=== PATIENT | female | born 1985 | race Caucasian/White ===

== ENCOUNTER 2017-11-23 12:02 | Emergency (ER) | payer MEDICAID ==
--- NOTE | 2017-11-23 13:40 | EDPHY ---
H & P Time Seen by Provider: 11/23/17 13:20 HPI/ROS: Chief complaint. Trouble breathing HPI. 32-year-old female history of asthma has been having dyspnea on exertion and wheezing for approximately 1 week. More short of breath today. Cough and slight sore throat. Achy but no fever. No unusual leg pain or swelling. No vomiting or diarrhea. Using her inhaler with inadequate relief. ROS Constitutional. no fever/chills, no weakness Eyes. no problems with vision ENT. Sore throat Cardiovascular. Diffuse anterior chest tightness Respiratory. Cough and shortness of breath with exertion Abdominal. no abdominal pain, no nausea/vomiting, no diarrhea . no problems urinating MS. no calf pain/swelling, no neck/back pain, no joint pain Skin. no rash Lymph. no swollen glands Neuro. no headache, no dizziness, no difficulty walking or with speech Past Medical/Surgical History: Asthma Social History: Single, nonsmoker, no alcohol Smoking Status: Never smoked Physical Exam: General Appearance: Alert pleasant well-developed female mild distress vital signs are stable Eyes: Pupils equal and round no pallor or injection. ENT, pharynx slightly injected with purulence on the right tonsil Respiratory: There are no retractions, lungs are clear to auscultation. No wheezing Cardiovascular: Regular rate and rhythm. Gastrointestinal: Abdomen is soft and nontender, no masses, bowel sounds normal. Neurological: Awake and alert, sensory and motor exams grossly normal. Skin: Warm and dry, no rashes. Musculoskeletal: Neck is supple nontender. Extremities symmetrical, full range of motion. Psychiatric: Patient is oriented X 3, there is no agitation. Constitutional: Initial Vital Signs Temperature (C) 36.3 C 11/23/17 12:10 Heart Rate 65 11/23/17 12:10 Respiratory Rate 22 H 11/23/17 12:10 Blood Pressure 118/83 H 11/23/17 12:10 O2 Sat (%) 99 11/23/17 12:10 O2 Delivery Mode Room Air Allergies/Adverse Reactions: aspirin Allergy (Verified 11/23/17 12:09) NSAIDS (Non-Steroidal Anti-Inflamma Allergy (Verified 11/23/17 12:09) Home Medications: Medication Instructions Recorded Albuterol Hfa Anes Only 11/23/17 Symbicort 160-4.5 Mcg Inh (*) 11/23/17 predniSONE 40 mg PO DAILY #8 tablet 11/23/17 Medical Decision Making - Diagnostics Imaging Results: Imaging Impressions Chest X-Ray 11/23/17 13:48 IMPRESSION: No evidence for acute cardiopulmonary abnormality. Chest x-ray shows hyperinflation but no evidence for new Procedures: DuoNeb updraft. Prednisone by mouth. Rapid flu and strep screen ED Course/Re-evaluation: Strep and influenza are negative Re-evaluation 2:45 p.m.--patient feeling better. She is speaking in full sentences. No stridor. Patient and I discussed laboratory evaluation, imaging study, treatment plan including criteria for return importance of follow-up and further evaluation. She expresses understanding and agreement Differential Diagnosis: I considered asthma exacerbation, influenza, strep pharyngitis - Data Points Laboratory Results: 11/23/17 11/23/17 Unknown 13:05 Nasal Influenza A PCR NEGATIVE FOR FLU A (NEGATIVE) Nasal Influenza B PCR NEGATIVE FOR FLU B (NEGATIVE) Group A Strep Screen NEGATIVE (NEGATIVE) Group A Strep DNA Pending Medications Given: Discontinued Medications Albuterol/Ipratropium (Duoneb) 3 ml IH EDNOW ONE Stop: 11/23/17 13:49 Last Admin: 11/23/17 14:02 Dose: 3 ml Prednisone (Prednisone) 60 mg PO EDNOW ONE Stop: 11/23/17 13:49 Last Admin: 11/23/17 14:03 Dose: 60 mg Departure - Departure Disposition: Home, Routine, Self-Care Clinical Impression: Exacerbation of asthma Qualifiers: Asthma severity: moderate Asthma persistence: unspecified Qualified Code(s): J45.901 - Unspecified asthma with (acute) exacerbation Condition: Good Instructions: Asthma (ED) Additional Instructions: Continue using her inhalers as prescribed. Prednisone daily for the next 4 days beginning tomorrow. Return for worsening breathing. Recheck in 2 days if not improved Referrals: Unknown,Unknown [Unknown] - As per Instructions Stand Alone Forms: Work Excuse Prescriptions: predniSONE 40 mg PO DAILY #8 tablet
[2017-11-23] MEDS ORDERED: IPRATROPIUM/ALBUTEROL 3 ML DEYVIAL IH ONE (13:48)
[2017-11-23] MEDS ORDERED: predniSONE 20 MG TAB PO ONE (13:48)
[2017-11-23 15:26] VITALS: BP 114/71; PULSE 83; RESP 16; TEMP 96.8; O2SAT 97
== END 2017-11-23 15:26 | disposition home or self-care (01) ==
DX: J45.901 Unspecified asthma with (acute) exacerbation (principal)
CPT/HCPCS: J7512